=== PATIENT | female | born 1975 | race Caucasian/White ===

== ENCOUNTER 2023-11-18 08:14 | Outpatient (CLI) | payer OTHER, SELFPAY ==
--- NOTE | 2023-11-18 08:15 | CRLHL7_ITS ---
For Patients: As a result of the Century Cures Act, medical imaging exams and procedure reports are released immediately into your electronic medical record. You may view this report before your referring provider. If you have questions, please contact your health care provider. INDICATION: Irregular menstruation COMPARISON: 07/2021 TECHNIQUE: 2D arreola scale and color Doppler images were acquired of the pelvis using a transabdominal and transvaginal approach. FINDINGS: Sonographic images demonstrate a normal size and smooth outer contour of the uterus. Uterus measures 8.6 cm in length by 4.5 cm in AP diameter by 6.0 cm in transverse dimension. section scar noted. The endometrial lining appears heterogeneous with small cystic areas and measures 10 mm in composite thickness. The right ovary measures 3.1 x 0.9 x 1.7 cm in size and the left ovary measures 6.9 x 3.8 x 4.3 cm. Simple left ovarian cysts are present measuring 4.2 x 3.2 x 4.0 cm and 2.5 cm. The ovaries demonstrate normal arterial and venous blood flow on color Doppler analysis. There are no suspicious fluid collections within the cul-de-sac. IMPRESSION: Endometrial thickness 1 cm. Possible adenomyosis. No uterine fibroid. Simple left ovarian cysts measuring up to 4.2 cm. Dictated by Yanick Cook MD @ 11/24/2023 6:22:52 AM (Electronically Signed)
== END 2023-11-18 08:15 | disposition home or self-care (01) ==
LOC: US 08:14
PROVIDERS: PCP Physician Assistant Medical; Visit Provider Physician Assistant Medical
DX: N92.6 Irregular menstruation, unspecified (principal); R93.89 Abnormal findings on diagnostic imaging of other specified body structures; N83.202 Unspecified ovarian cyst, left side
CPT/HCPCS: 76830; 76856; 93976

== ENCOUNTER 2023-12-01 12:05 | Outpatient (CLI) | payer OTHER, SELFPAY | END 2023-12-01 12:06 | disposition home or self-care (01) | PROVIDERS: PCP Physician Assistant Medical; Visit Provider Physician Assistant | DX: N92.0 Excessive and frequent menstruation with regular cycle (principal); E66.9 Obesity, unspecified; N92.6 Irregular menstruation, unspecified; Z13.6 Encounter for screening for cardiovascular disorders; Z13.9 Encounter for screening, unspecified | CPT/HCPCS: 80053; 80061; 83001; 84443 ==

== ENCOUNTER 2023-12-22 16:45 | Outpatient (RCR) | payer OTHER, SELFPAY | END 2024-04-20 23:59 | disposition home or self-care (01) | PROVIDERS: PCP Physician Assistant Medical; Visit Provider Physician Assistant Medical | DX: M25.562 Pain in left knee (principal); Z51.89 Encounter for other specified aftercare | CPT/HCPCS: 97032; 97110; 97140; 97161 ==

== ENCOUNTER 2024-01-27 13:42 | Outpatient (CLI) | payer OTHER, SELFPAY ==
--- NOTE | 2024-01-27 13:40 | MM_ITS ---
Patient: LAURYN MUÑOZ Facility:?[facility] Patient ID:?[id number] Site Patient ID:?[id number]. Site :?[id number] Study:?XRay-Breast Bilateral 3D-01/27/2024 2:14:51 PM Ordering Physician:Bernadine Final Report: BILATERAL SCREENING MAMMOGRAM WITH COMPUTER-AIDED DETECTION AND TOMOSYNTHESIS TECHNIQUE: CC and MLO views were obtained. These mammographic images have been obtained using full-field digital technique. These mammographic images were interpreted with the benefit of computer-aided detection. Breast Tomosynthesis was used in this interpretation. COMPARISON FILM: 09/01/2020. FINDINGS: The breasts are heterogeneously dense, which may obscure small masses. IMPRESSION: There is no radiographic evidence for malignancy. ASSESSMENT: BI-RADS Category 2: Benign RECOMMENDATION: Routine screening mammogram in 1 year. A lay language report of this examination will be provided to the patient. Yanick Cook M.D. Diagnostic Radiologist [email or web address] DSM/sp R& Transcribed: 6:35 p.m. SP/Dictated by: Yanick Cook MD @ 01/30/2024 9:28:00 AM Signed by:?Yanick Cook MD @01/31/2024 5:12:56 AM (Electronic Signature)
== END 2024-01-27 13:43 | disposition home or self-care (01) ==
LOC: MAMMO 13:44
PROVIDERS: PCP Physician Assistant Medical; Visit Provider Physician Assistant Medical
DX: Z12.31 Encounter for screening mammogram for malignant neoplasm of breast (principal); R92.2 Inconclusive mammogram
CPT/HCPCS: 77063; 77067

== ENCOUNTER 2024-03-06 06:57 | Day surgery (SDC) | payer OTHER, SELFPAY ==
[2024-03-06] VITALS (24 sets, daily range): BP systolic 88–121; BP diastolic 47–73; PULSE 50–96; RESP 12–20; TEMP 35.7–37.5; O2SAT 94–100; BMI 36.3
--- OUTSIDE RECORDS SUMMARY | 2024-03-06 06:58 | XMS_ITS | Clinical Summary ---
Author Name Unknown Organization [facility] Address [place], [place] [address] Care Team Providers Care Candy Depositing Machine Operator Name Role Phone Alda Angulo DANIEL Primary Care Provider [phone] Allergies No known active allergies Medications Medication Sig Dispensed Refills Start Date End Date Status vitamin-folic acid 1 mg ( VITAMIN) tablet/capsuleIndi cations: Take 1 tablet by mouth once daily. Indications: Active sertraline (ZOLOFT) 100 mg tabletIndications: anxiety with depression Take 100 mg by mouth once daily. Indications: ANXIETY WITH DEPRESSION Active acetaminophen (TYLENOL) 325 mg tablet Take 1-2 tablets by mouth every 6 hours if needed (For mild pain.). Max acetaminophen dose: 4000mg in 24 hrs. 0 11/28/2016 Active simethicone chewable (MYLANTA GAS RELIEF; GAS X) 80 mg chewable tablet Take 1 tablet by mouth 4 times daily after meals and at bedtime. Max dose: 500 mg per 24 hrs 0 11/28/2016 Active glycerin-witch rosy (TUCKS) pad Apply 1 Each topically to affected area(s) every hour if needed for Other (Specify) (1st medication choice for perineal discomfort due to swelling and itching.). 0 11/28/2016 Active lanolin (LANSINOH) ointment Apply topically to affected area(s) every hour if needed for Other (Specify) (For nipple discomfort). 0 11/28/2016 Active ferrous sulfate, 65 mg elemental, tablet Take 1 tablet by mouth. 0 11/28/2016 Active docusate (COLACE) 100 mg capsule Take 2 capsules by mouth once daily if needed for Constipation (This medication is 1st choice for constipation if SENOKOT-S is ineffective.). 0 11/28/2016 Active ibuprofen (ADVIL; MOTRIN) 600 mg tablet Take 1 tablet by mouth every 6 hours. Maximum of 3200 mg in 24 hours. 0 11/28/2016 Active oxyCODONE-acetamin ophen, 5-325 mg, (PERCOCET) 5-325 mg per tabletIndications: delivery delivered Take 1 tablet by mouth every 4 hours if needed for Pain Earliest Fill Date: 11/28/16 Max acetaminophen dose: 4000mg in 24 hrs. 20 tablet 11/28/2016 Active Breast Pump - PurchaseIndication s: delivery delivered For home use. Gestation age at delivery: term Reason for need: . Length of need: 1 year 1 Device 11/28/2016 Active Active Problems Problem Noted Date Diagnosed Date delivery delivered 11/26/2016 bradycardia affecting management of mother , delivered 11/26/2016 Asthma affecting , antepartum 6 Depression affecting , 11/26 Social History Tobacco Use Types Packs/Day Years Used Date Smoking Tobacco: Never Sex and Gender Information Value Date Recorded Sex Assigned at Not on file Gender Identity Not on file Sexual Orientation Not on file Obstetrics History Para Term AB IAB SAB Ectopic Multiple Livin g Live Births 2 1 1 0 0 0 0 0 0 2 1 Date Outcome GA Total Labor Labor/2nd/3rd Weight Sex Delivery Anes PTL Janet A1 A5 Name Cl in Term M N Meri ng Complications: Intolera nce Last Filed Vital Signs Vital Sign Reading Time Taken Comments Blood Pressure 134/77 11/28/2016 8:31 AM TOOL GRINDING MACHINE OPERATOR Pulse 69 11/28/2016 8:31 AM TOOL GRINDING MACHINE OPERATOR Temperature 36.9 ??C (98.4 ??F) 11/28/2016 8:31 AM CS T Respiratory Rate 16 11/28/2016 8:31 AM TOOL GRINDING MACHINE OPERATOR Oxygen Saturation 97% 11/28/2016 8:31 AM TOOL GRINDING MACHINE OPERATOR Inhaled Oxygen Concentration - - Weight 82.1 kg (181 lb) 11/26/2016 9:48 PM TOOL GRINDING MACHINE OPERATOR Height 158.8 cm (5' 2.5) 11/26/2016 9:48 PM TOOL GRINDING MACHINE OPERATOR Body Mass Index 32.58 11/26/2016 9:48 PM TOOL GRINDING MACHINE OPERATOR Plan of Treatment Health Maintenance Due Date Last Done Comments Tdap 1988 Depression screening for age 12+ 1989 HIV for age 15-65 1992 BMI (ht and wt on same day) for age 18+ 1995 Hepatitis C screening for age 18-79 1995 Tetanus booster 1997 Colonoscopy through age 75 2022 Lipids for age 45-75 2022 Mammogram for age 45-75 2022 COVID-19 vaccine series (2022-24 season) 2023 Influenza for age 9-49 07/29/2024 Pap test for age 21-65 08/12/2024 , 08/12/2021, 01/03/2017, Additional history exists Pneumococcal series for age 6-64 Aged Out No longer eligible based on patient's age to complete this topic Procedures Procedure Name Priority Date/Time Associated Diagnosis Comments HPV THIN PREP Routine 08/12/2021 9:45 AM CDT from Last 3 Months or Most Recently Relevant to Health Maintenance Results * HPV HIGH RISK (08/12/2021 9:45 AM CDT) TYPE 16 Negative Negative 08/14/2021 2:08 PM CDT [facility] TYPE 18 Negative Negative 08/14/2021 2:08 PM CDT [facility] OTHER HIGH RISK TYPES Negative Negative 08/14/2021 2:08 PM CDT [facility] Other (Cervical/Vagina l) 08/12/2021 9:45 AM CDT 08/13/2021 11:25 AM CDT Narrative [facility] - 08/14/2021 2:08 PM CDT HPV types 16, 18, 31, 33, 35, 39, 45, 51, 52, 56, 58, 59, 66 and 68 DNA were undetectable or below the pre-set threshold. Methodology: Jeanne Uziel 4800 HPV Test February Vianney [facility] [employer] [facility] [address] [place] [address], from Last 3 Months or Most Recently Relevant to Health Maintenance Advance Directives * Full Code (Latest Code Status on File) Date Activated Date Inactivated Comments 11/26/2016 6:03 PM 11/28/2016 3:53 PM Question Answer Comments Code Status Discussion: Discussed Care Teams Candy Depositing Machine Operator Relationship Specialty Start Date End Date Alda Angulo NP [address] [place] [id number] PCP - General Nurse Practitioner 02/08/17
[2024-03-06] MEDS: LACTATED RINGERS 1000 ML 1,000 ML 100 ML IV ×2 (07:20→10:09)
[2024-03-06] MEDS: SODIUM CHLORIDE 0.9 % (FLUSH) 10 ML SYRINGE IVF (07:20)
[2024-03-06 07:47] LABS: Hemoglobin* 12.1 gm/dL (12.0-16.0)
[2024-03-06 07:51] LABS: Ur HCG Qualitative* Negative (Negative)
[2024-03-06 08:00] LABS: Creatinine* 0.7 mg/dL (0.5-1.5); Est. Creatinine Clearance* 79.42; Estimated Glomerular Filt Rate 108 ml/min
--- NOTE | 2024-03-06 08:31 | W.PM.H&PU ---
History & Physical Update History & Physical Update H&P Reviewed and patient assessed: No changes noted
[2024-03-06] MEDS: CEFAZOLIN 2 GM INJ IVP (08:49)
[2024-03-06] MEDS: BUPIVACAINE 0.25% 30 ML INJECTION (09:15)
--- NOTE | 2024-03-06 09:20 | W.PM.NB ---
Nerve Block Nerve Block Time Seen by Provider: 08:45 Date Seen: 03/06/24 Type of block requested by surgeon for post-operative analgesia: TAP Side: bilateral Time out performed: Yes Verification of patient name: Yes Verification of date of : Yes Site marking: site marked Name of person performing procedure: Maxwell Continuous monitoring Was continuous monitoring of O2 sat, B/P, director of cardiac rehabilitation, recorded every 15 minutes?: Yes Procedure Checklist: sterile prep, needles and gloves Ultrasound guided. Images saved: Yes Medications given in 5ml increments after negative aspiration: Marcaine %: 0.25 mL: 30 Needle gauge: 20 and Exparel mL: 10 Patient tolerated procedure well: Yes Additional comments: Needle noted between internal oblique and transversus abdominus. Local spread visualized Block Charges Block Charge (with Pro Fee): TAP Bilateral Use of Ultrasound Machine for Block: Yes- US Guidance/pain block
--- NOTE | 2024-03-06 09:25 | W.ANESCHARGE ---
Anesthesia Charges Start Date/Time Anesthesia Start Date: 03/06/24 Anesthesia Start Time: 08:32 Stop Date/Time Anesthesia Stop Date: 03/06/24 Anesthesia Stop Time: 12:09
[2024-03-06] MEDS: METHYLENE BLUE 1 % 10 ml 100 MG INJECTION (10:30)
--- NOTE | 2024-03-06 11:47 | P.GYNPRC_ITS ---
Procedure Note Date of procedure: 03/06/24 Procedure: Total abdominal hysterectomy, bilateral salpingectomy, diagnostic cystoscopy Complications: None. Surgeon: Adrienne Goldstein MD Financial Institution Branch Manager: Jessika Arnold Procedure Description: PREOPERATIVE DIAGNOSIS: Abnormal uterine bleeding, h/o endometriosis, h/o c- section POSTOPERATIVE DIAGNOSIS: same PROCEDURE: Total laparoscopic hysterectomy. Bilateral salpingectomy. Diagnostic cystoscopy. SURGEON: Triston RECONCILING CLERK: Catalina ANESTHESIA: General endotracheal COMPLICATIONS: None ESTIMATED BLOOD LOSS: See operative report by Dr. Goldstein FINDINGS: See operative report by Dr. Goldstein PROCEDURE NOTE: Please see the operative report by Dr. Goldstein for full details of the procedure. I was asked to assist. I was scrubbed in for the entire procedure until closure of the abdominal incisions. I provided assistance with laparoscopic port placement, lysis of adhesions, visualization and retraction, and with the hysterectomy and bilateral salpingectomies from the right side, as well as with hemostasis and closure of the vaginal cuff.
--- NOTE | 2024-03-06 12:06 | P.GYNPRC_ITS ---
Procedure Note Date of procedure: 03/06/24 Will [facility] bill your pro fee for this procedure?: Yes Pre-op diagnosis: Abnormal uterine bleeding, chronic pelvic pain Post-op diagnosis: same Procedure: Total laparoscopic hysterectomy, bilateral salpingectomy, cystoscopy Anesthesia: GETA Complications: None Surgeon: Wilmar Goldstein MD Comp Field Case Manager: Jessika Arnold Estimated blood loss (mL): 250 IV fluids (mL): 1,800 Urine Output (mL): 400 (Blue/green in color secondary to methylene blue ) Pathology: specimen obtained, sent to pathology (Uterus, bilateral fallopian tubes with associated paratubal cysts) Condition: stable Disposition: floor Findings: Speculum exam: Grossly normal cervix, no abnormal vaginal lesions. Uterine sound of 8cm. Intra abdominal survey: Grossly normal liver, stomach,intestines. Uterus of about 8cm, small posterior subserosal fibroid of about 2cm. Thick bladder adhesions to the lower uterine segment. Grossly normal bilateral ovaries, left paratubal cyst of about 3cm, right paratubal cyst of about 1cm. Large blood vessels in the pelvis as in pelvic congestion syndrome. Evidence of peritoneal windows as in endometriosis, on the posterior cul de sac towards the right side. Evidence of scarring mostly on her left uterosacral ligament. No evidence of powder gun lesions in the pelvis. Procedure Description: DESCRIPTION OF PROCEDURE: After obtaining informed consent, the patient was taken to the operating room where general anesthesia was obtained without difficulty. She was prepared and draped in the normal sterile fashion in the low dorsal lithotomy position. A Newman catheter was inserted into the bladder and left to gravity drainage. A medium Graves open-sided speculum was introduced into the vagina. The cervix was visualized and grasped along its anterior lip with a single-tooth tenaculum. The uterus was gently sounded. Sound length was found to be 8 cm. Cervix sequentially dilated with Hegar dilators for placement of uterine manipulator. I then placed a Medium VCare uterine manipulator. The tenaculum and speculum were removed. The green VCare cup was digitally pressed up against the cervix and then cinched in place with the blue accessory cup. I then changed gloves and my attention was turned to the abdomen. The inferior aspect of the umbilical fold was injected with 0.5 Bupivacaine plain. A 5 mm vertical incision was then made within the umbilical fold using a scalpel. A direct entry technique was used and a 5 mm laparoscopic port with CO2 gas set at 5mmHg was introduced under direct visualization. The trocar was removed leaving the sleeve in place. The CO2 gas flow was turned to high flow to achieve pneumoperitoneum. The 5 mm laparoscope was used then to carefully inspect the abdomen and pelvis with findings noted above. Pictures were taken for documentation purposes. The patient was placed in Trendelenburg positioning. Two additional ports were placed in the right and left lower quadrants under direct visualization after first anesthetizing the skin and fascia with 0.5 Bupivacaine plain. On the left side a 11mm port was utilized and on the right side a 5mm port placed. An additional 5mm port was placed on the abdomen at the level of the umbilicus to the left of umbilicus, about 3-4 cm lateral from umbilicus under direct visualization. Once the ports were in place, the VCare manipulator was used to elevate the uterus. The ureters were identified bilaterally along their courses in the pelvic sidewalls. The VCare cup was visualized and palpated with a blunt grasper. The left tube was elevated with a graspers. The Thunderbeat device was used to dissect the tube from it's ovarian and broad ligament and cornual attachments before removing the tube through a lower port. Excellent hemostasis was obtained. The remaining broad ligament attachments were sealed and transected with the Thunderbeat device. The left round ligament was then sealed in a wide swath and transected with the Thunderbeat, excellent hemostasis was obtained. The broad ligament was then opened using the Thunderbeat anteriorly and posteriorly along the cervix from the left within the confines of the VCare cup. Pressure was maintained on the uterine manipulator the whole time. The left uterine vessels were sealed in a wide swath and transected with the Thunderbeat, then the tissues over the VCare cup edge on the left side were thinned using the Thunderbeat to the midline posteriorly and anteriorly so that the fascial layer could be identified. The right tube was elevated with a graspers. The Thunderbeat device was used to dissect the tube from it's ovarian and broad ligament and cornual attachments before removing the tube through a lower port. Excellent hemostasis was obtained. The remaining broad ligament attachments were sealed and transected with the Thunderbeat device. The right round ligament was then sealed in a wide swath and transected with the Thunderbeat, excellent hemostasis was obtained. The broad ligament was then opened using the Thunderbeat anteriorly and posteriorly along the cervix from the right within the confines of the VCare cup. Pressure was maintained on the uterine manipulator the whole time. The right uterine vessels were sealed in a wide swath and transected with the Thunderbeat, then the tissues over the VCare cup edge on the right side were thinned using the Thunderbeat to the midline posteriorly and anteriorly so that the fascial layer could be identified. Once an adequate dissection was made circumferentially, the Thunderbeat device was utilized to dissect until identification of the green Vcare cup, tissue dissected circumferentially around the cervix within the groove of the VCare cup. Once the dissection was completed circumferentially, from the vagina the uterine manipulator and the uterus were removed. The uterus was left in the vagina to aid in maintaining pneumoperitoneum, this was challenging due to large vaginal cuff, but by adding a glove pneumoperitoneum was able to be maintained. The vaginal cuff was reapproximated in a running fashion with a V-Loc suture starting from the right side and running across to the left and then back to the midline where the suture was cut flush with the tissues. The pelvis was copiously irrigated and hemostasis visualized. Preparations were then made for cystoscopy. Fluorescein was administered intravenously along with the IV fluids. The Newman catheter was removed. The patient was flattened out. Cystoscopy was performed using sterile normal saline as distending medium. The bladder was carefully inspected and noted to be free of filling defects or suture material. Both ureteral orifices were easily visualized and fluorescein tinged urine jets were noted from both sides. The cystoscope was then removed. The Newman tunde ter was replaced into the bladder. Pneumoperitoneum was seen coming out from the right corner of the vaginal cuff. Utilizing a speculum, an allis was used vaginally to grab the right corner of incision and using Vicryl 0, with a figure of 8 suture technique the corner was reinforced. Hemostasis assured. Aattention was once again turned to the abdomen. The abdomen and pelvis were again irrigated and inspected for hemostasis. Attention was then placed to the 11mm port site and under direct visualization using a Casey-Emily system the fascia was closed. All instruments were then removed under direct visualization. Pneumoperitoneum was allowed to escape. The skin at all port sites was closed in a subcuticular fashion with 4-0 Vicryl. LiquiBand was then placed over the incisions. The patient tolerated the procedure well. Sponge, lap, needle, and instrument counts were reported as correct x2. The patient was taken to the recovery room awake and in stable condition. She did receive 2 g of IV Ancef preoperatively. PATHOLOGY SPECIMEN(S): Uterus and bilateral fallopian tubes
--- NOTE | 2024-03-06 12:12 | W.ANESCHARGE ---
Anesthesia Charges Start Date/Time Anesthesia Start Date: 03/06/24 Anesthesia Start Time: 08:32 Stop Date/Time Anesthesia Stop Date: 03/06/24 Anesthesia Stop Time: 12:09
[2024-03-06] MEDS: HYDROmorphone 0.5 mg/0.5 ml inj IVP ×2 (12:20→12:38)
[2024-03-06] MEDS: ONDANSETRON 2 MG/ML inj 4 MG IVP (12:23)
[2024-03-06] MEDS: LACTATED RINGERS 1000 ML 1,000 ML 125 ML IV (13:07)
[2024-03-06] MEDS: OXYCODONE 5 MG TABLET PO ×3 (13:28→21:38)
[2024-03-06] MEDS: PROMETHAZINE 25 MG/ML INJ 12.5 MG IV (13:29)
--- NOTE | 2024-03-06 15:27 | PC.NURSE ---
End of Shift: Patient pleasant and cooperative, arrived to the floor about 1300. Patient with pain and nausea upon return from PACU, anti-nausea and 5 mg of oxy given once, with much improvement. Patient vitally stable, lungs clear, BS WNL, IV running LR at 125. Abdominal lap sites x4 C/D/I. Patient drinking some water and eating crackers. Newman intact and draining creamy green urine 100 ml emptied.
[2024-03-06] MEDS: ACETAMINOPHEN 500 MG TABLET 1000 MG PO (17:35)
[2024-03-06] MEDS: KETOROLAC 30 MG/ML inj IVP ×2 (18:06→23:35)
--- NOTE | 2024-03-06 23:00 | PC.NURSE ---
End of Shift: Patient pleasant and cooperative. Afebrile. Glued lap sites to abdomen C/D/I. Rating pain up to 4-5/10 and PRN Oxycodone given x2. Tolerating regular diet with no nausea. Up in room and to bathroom with SBA. Newman patent.
[2024-03-07 03:00] VITALS: BP 113/68; PULSE 77; RESP 16; TEMP 36.9; O2SAT 96
[2024-03-07] MEDS: OXYCODONE 5 MG TABLET PO (04:25)
--- NOTE | 2024-03-07 06:06 | PC.NURSE ---
End of shift report [id number]: Pleasant and cooperative with cares, A&O x4. Pain to abdomen and left shoulder well managed with current regimen. Lap sites to abdomen are clean, dry and intact. Patient utilizing ice packs to lower abdomen for pain and swelling. Newman catheter patent, draining clear, green tinged urine. Denies any cough, lung sounds clear. Remained in bed this shift, patient doing ankle pumps.
[2024-03-07] MEDS: IBUPROFEN 600 MG TABLET PO ×2 (06:24→12:05)
[2024-03-07 07:00] LABS: Hemoglobin* 10.2 gm/dL (12.0-16.0)
[2024-03-07 07:28] VITALS: BP 117/75; PULSE 63; RESP 16; TEMP 37.4; O2SAT 97
[2024-03-07 07:32] LABS: Creatinine* 0.8 mg/dL (0.5-1.5); Estimated Glomerular Filt Rate 92 ml/min
--- NOTE | 2024-03-07 08:32 | P.DS_ITS ---
DS: Providers Provider Date Seen: 03/07/24 Primary care physician: Charo Stewart PA-C Attending Physician on discharge: Adrienne Goldstein MD Date of Discharge: 03/07/24 DS: Diagnosis Discharge Diagnosis (1) S/P hysterectomy: Status: Acute Problem details: Total laparoscopic hysterectomy, bilateral salpingectomy, cystoscopy GREENHOUSE TECHNICIAN-Discharge Summary Hospital Course Hospital Course Narrative: Patient is a 48 year old admitted on 03/06/2024 for elective surgery. Indication for surgery: Abnormal uterine bleeding, chronic pelvic pain. She had an uncomplicated surgery. Postoperative course has been uneventful. Vitals have been stable. She has remained afebrile. Today, on postoperative day 1, she reports the pain is well controlled. She has been able to ambulate Without difficulty. She is tolerating regular diet. She is passing flatus. Newman catheter has been removed, and she is voiding without difficulty. Time Spent with Patient Time attestation: Total time spent providing and/or coordinating discharge services: Time spent: Less than 30 minutes GREENHOUSE TECHNICIAN - Exam Physical Exam: Vital signs: Temp Pulse Resp BP Pulse Ox O2 Del Method 99.4 F 63 16 117/75 97 Room Air 03/07/24 07:28 03/07/24 07:28 03/07/24 07:28 03/07/24 07:28 03/07/24 07:28 03/07/24 07:28 Narrative: VITAL SIGNS: As noted above. GENERAL APPEARANCE: Alert, cooperative female in no acute distress. MOOD & AFFECT: Normal. ABDOMEN: Soft, appropriately tender, no guarding, no rebound, positive bowel sounds. Incisions dry, clean. : Minimal spotting. EXTREMITIES: Nonedematous. Well perfused. Nontender. GREENHOUSE TECHNICIAN - DS: Data Data Completed and Pending Labs on day of discharge: Labs from last 24 hours 03/07/24 03/06/24 06:28 07:33 Hgb 10.2 L Creatinine 0.8 Estimated Creat Clear 69.50 Estimated GFR 92 Blood Type A Positive Antibody Screen NEGATIVE Procedures Procedures: Procedures Operation Date: 03/06/24 08:25 Actual Procedure Side Surgeon p Laparoscopic Hysterectomy, Bilateral Salpingectomy, Cystoscopy Adrienne Goldstein MD Discharge Plan Discharge Disposition: Home w/ Parent or Adult Discharging Surgeon: Adrienne Goldstein Follow-Up Appointment: 2 weeks at [facility] Prescriptions: New docusate sodium 100 mg Capsule 100 mg PO BID PRN (Reason: Constipation) Qty: 30 0RF ibuprofen 600 mg Tablet 600 mg PO Q6H Qty: 30 0RF oxycodone 5 mg Tablet 5 mg PO Q4H PRN (Reason: Moderate Pain) Qty: 15 0RF Continued cholecalciferol (vitamin D3) 25 mcg/drop ( 1,000 unit/drop) drops 25 mcg PO DAILY albuterol sulfate 90 mcg/actuation HFA aerosol inhaler 2 puff inhalation Q4-6H PRN (Reason: shortness of breath or wheezing) Qty: 1 1RF lisdexamfetamine [Vyvanse] 40 mg capsule 40 mg PO DAILY Rx Instructions: once daily omega 3-eiw-vao-fish oil [Fish Oil] 1,200 (144-216) mg capsule 1 cap PO DAILY sertraline 100 mg tablet 100 mg PO DAILY Qty: 90 0RF Activity Level: Activity as Tolerated and No Weight Bearing Activity Detail: No heavy lifting more than 15 pounds, nothing vaginally for 6 weeks Discharge Diet: Regular Patient Instructions: Laparoscopic Hysterectomy (DC) Follow-up: Charo Stewart PA-C [Primary Care Provider] - Discharge Orders: Discharge Order (Routine); Ordered 03/07/24 Ordered By: Adrienne Goldstein
[2024-03-07] MEDS: SERTRALINE 100 MG TABLET PO (09:21)
[2024-03-07] MEDS: ACETAMINOPHEN 500 MG TABLET 1000 MG PO (09:22)
[2024-03-07 11:06] VITALS: BP 99/60; RESP 12; TEMP 36.9; O2SAT 95
--- NOTE | 2024-03-07 16:02 | PC.NURSE ---
Addendum entered by Marta Chen RN 03/07/24 16:08: Left the floor at 1520. Original Note: Discharge: Patient pleasant and cooperative. Patient vitally stable, lungs clear, BS WNL, IV removed, catheter intact. Patient rates pain at most 3/10, scheduled Ibuprofen given, and tylenol given once. Active ice used intermittently. Newman removed, tip intact, patient able to urinate well independently. Patient tolerating regular diet. Abdominal lap sites x4 C/D/I. Patient signed belongings sheet and discharge form. Patient had no further questions regarding discharge. Patient left the floor by wheelchair to home at 1325.
== END 2024-03-07 15:20 | disposition home or self-care (01) ==
LOC: OR 06:57 → MEDSURG 07:00
PROVIDERS: PCP Physician Assistant Medical; Visit Provider Obstetrics & Gynecology
PROC: 0UT94ZZ Resection of Uterus, Percutaneous Endoscopic Approach (ICD-10-PCS; CPT 58571; principal; 2024-03-06 08:15)
DX: N93.8 Other specified abnormal uterine and vaginal bleeding (principal); N83.8 Other noninflammatory disorders of ovary, fallopian tube and broad ligament; D25.2 Subserosal leiomyoma of uterus; G89.29 Other chronic pain; R10.2 Pelvic and perineal pain; G89.18 Other acute postprocedural pain
CPT/HCPCS: 58571; 00840; 36415; 64488; 76942; 81025; 82565; 85018; 86850; 86900; 86901; 88307; A9270; C9290; J0330; J0665; J0690; J1100; J1170; J1885; J2250; J2405; J2550; J2704; J2710; J3010; J7120

== ENCOUNTER 2025-03-18 14:37 | Outpatient (CLI) | payer OTHER, SELFPAY | END 2025-03-18 14:38 | disposition home or self-care (01) | PROVIDERS: PCP Physician Assistant Medical; Visit Provider Physician Assistant Medical | DX: M25.561 Pain in right knee (principal) | CPT/HCPCS: 84550; 86140; 86618 ==

== ENCOUNTER 2025-04-08 19:03 | Outpatient (CLI) | payer OTHER, SELFPAY ==
--- NOTE | 2025-04-08 19:00 | MR_ITS ---
[address] [address] Phone:?[phone] Fax:?[phone] Referring Physician Information: Manoj Riojas M.D. [id number] [facility] [address] Phone:?[phone] Fax:?[phone] Patient:Douglas Campos D.O.B:?1975 Sex:?Female Phone:?[phone] [facility] MRN:?[id number] Exam Date:?04/08/2025 EXAM: MRI OF THE RIGHT KNEE CLINICAL INFORMATION: The patient is a 49-year-old with right knee pain. Evaluate ACL. Evaluate for medial meniscal tear. PRIOR SURGERY: None reported. COMPARISON STUDIES: Comparison is made to prior radiographs dated 11/14/2023. TECHNICAL INFORMATION: Imaging was performed on a high-field, 1.5 Joanna MR scanner. Axial proton-density and fat-suppressed T2 imaging was performed in addition to sagittal proton-density and fat-suppressed proton-density imaging. Coronal proton-density and coronal STIR imaging was produced. FINDINGS: Articular/Extraarticular collections: Effusion: Moderate. Popliteal cyst: A moderate popliteal cyst is present and can be seen on sagittal series 6 image 20. Loose bodies: No well-defined intra-articular loose bodies are seen. Subcutaneous and extraarticular soft tissues: Nonspecific subcutaneous soft tissue edema and/or hemorrhage can be seen along the anterior aspect of the patellar tendon and tibial tubercle on sagittal series 6 image 14. Osseous structures: Cortical irregularity and subcortical edema can be seen along the articular surfaces of the patella, in keeping with the chondromalacia and chondral loss described below. No other bony abnormalities about the knee are seen. There is no evidence for fracture, contusion, or stress injury. Ligamentous structures: ACL: Intact and normal in appearance. PCL: Intact and normal in appearance. MCL: Intact and normal in appearance. LCL: Intact and normal in appearance. Posterolateral corner: Intact and normal in appearance. Posteromedial corner: No posteromedial corner soft tissue injury. Semimembranosus and pes anserine tendons demonstrate no tendinopathy or associated bursitis. Extensor mechanism/Patellar retinacular structures: Patellar tendon: Intact, without tendinopathy. Quadriceps tendon: Intact, without tendinopathy. Retinacula: The medial and lateral retinacula are intact. The medial patellofemoral ligament is intact. Medial compartment: Medial meniscus: Degeneration of the medial meniscus can be seen without definite areas of well-defined tearing. There is no evidence for parameniscal cyst formation. No meniscocapsular separation injury is identified. Medial femoral condyle: There is full-thickness and near full-thickness chondral loss involving the posterior articular surfaces of the medial femoral condyle seen on sagittal series 5 image 22 and on coronal series 8 image 19. The area of chondral loss measures approximately 16 mm in anteroposterior dimension and 13 mm in mediolateral dimension. Medial tibial plateau: No chondromalacia, chondral defect, or osteochondral abnormality. Lateral compartment: Lateral meniscus: No evidence for lateral meniscal tearing is present. No evidence for parameniscal cyst formation can be seen. 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 No full-thickness chondral defects are identified. Lateral tibial plateau: No chondromalacia, chondral defect, or osteochondral abnormality. Patellofemoral compartment: Patella: Full-thickness and near full-thickness chondral loss can be seen along the inferior articular surfaces of the patella with underlying bony change. Trochlea: Full-thickness and near full-thickness chondral loss can be seen along the central articular surfaces of the femoral trochlea. Neurovascular: No definite neurovascular abnormalities are seen. CONCLUSION: 1. The cruciate and collateral ligaments appear intact. 2. 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 3. Degeneration of the medial meniscus. No well-defined medial or lateral meniscal tearing is noted. 4. No acute bony injuries are identified. 5. Moderate knee joint effusion and moderate popliteal cyst. [facility] Electronically signed on 04/09/2025 9:59:00 AM by Petr Ashton M.D.
== END 2025-04-08 19:04 | disposition home or self-care (01) ==
LOC: MRI 19:03
PROVIDERS: PCP Physician Assistant Medical; Visit Provider Orthopaedic Surgery Sports Medicine
DX: M25.561 Pain in right knee (principal); M25.461 Effusion, right knee; S83.511A Sprain of anterior cruciate ligament of right knee, initial encounter; S83.241A Other tear of medial meniscus, current injury, right knee, initial encounter
CPT/HCPCS: 73721